=== PATIENT | female | born 1965 | race Caucasian/White ===

== ENCOUNTER 2017-08-30 08:06 | Day surgery (SDC) | payer OTHER ==
[2017-08-28 07:52] VITALS: BMI 21.9
--- NOTE | 2017-08-29 15:03 | HP ---
HISTORY AND PHYSICAL DATE OF SERVICE: 08/30/2017 Julia Covarrubias is a 52-year-old patient seen with progressive right shoulder pain. We discussed treatment options. She elected to proceed with right shoulder arthroscopy. Consent was obtained. PAST MEDICAL HISTORY: Noncontributory. PAST SURGICAL HISTORY: Noncontributory. DAILY MEDICATIONS: Ibuprofen or Tylenol as needed. ALLERGIES: EPINEPHRINE. SOCIAL HISTORY: Patient denies current tobacco use. PHYSICAL EXAMINATION: Right shoulder: Flexion is 170 degrees, abduction is 170 degrees, external rotation is 70 degrees. Weakness, tenderness along the anterior lateral acromion rotator cuff insertion site. Impingement is positive at 110. Drop-arm signs equivocal. Distal neurovascular exam intact. Radiographs of the right shoulder reveal a lateral downsloping anterior acromion. An MRI of right shoulder revealed rotator cuff tear and chondromalacia. IMPRESSION: Right shoulder impingement with rotator cuff tear. PLAN: Right shoulder arthroscopy with subacromial decompression, probable arthroscopic rotator cuff repair and debridement. MMODL / IJN: [id number] /
[~2017-08-30 08:06] MED LIST: DEXAMETHASONE SOD PHOSPHATE 10 MG/ML 1 ML VIAL IV ONE; HYDROmorphone 0.5 MG/0.5 ML SYRINGE IVP PRN; LACTATED RINGERS 1,000 ML IV SCH; MIDAZOLAM 2 MG/2 ML VIAL IV PRN
[2017-08-30] MEDS ORDERED: SCOPOLAMINE 1.5MG/72HR PATCH TRANSDERM ONE (08:57)
[2017-08-30] MEDS: ONDANSETRON 4 MG/2 ML VIAL IVP ONE ×2 (08:57→12:18)
[2017-08-30] MEDS ORDERED: fentaNYL (PF) 50 MCG/ML 2 ML AMP IVP ONE (09:00)
[2017-08-30] MEDS ORDERED: MIDAZOLAM 2 MG/2 ML VIAL IVP ONE (09:00)
--- NOTE | 2017-08-30 09:27 | P.ONQ ---
Anesthesiology Proc Note - PNB - Peripheral Nerve Block Performed Right Interscalene Single Time Out Performed: Yes Procedure Start Time: 08:55 Indication: Acute Post-Operative Pain, Analgesia Sedation Type: Sedate with meaningful contact maintained Preparation: Sterile Prep Position: Supine Catheter: None Needle Types: Other (see comment) (Sienna) Needle Size: 50mm (2") Needle Gauge: 21 Technique: Ultrasound Injectate: Other (see comment) (12.5 mL 0.5% ropivacaine +12.5 mL 2% lidocaine) Adjunct: Epinephrine (see comment for dilution ratio) (1:200,000) Blood Aspirated: No Pain Paresthesia on Injection Noted: No Resistance on Injection: Normal Events: Uneventful and Well Tolerated
[2017-08-30] MEDS ORDERED: LIDOCAINE 2%-EPI 1:100,000 20 ML VIAL ONE (09:54)
[2017-08-30] MEDS ORDERED: MIDAZOLAM 2 MG/2 ML VIAL ONE (09:54)
[2017-08-30] MEDS ORDERED: PROPOFOL 10 MG/ML 20 ML VIAL IV ONE (09:54)
[2017-08-30] MEDS ORDERED: LIDOCAINE 1% INJ 10MG/ML (20 ML MDV) ONE (09:54)
[2017-08-30] MEDS ORDERED: ROPIVACAINE 5 MG/ML 30 ML VIAL ONE (09:54)
[2017-08-30] MEDS ORDERED: fentaNYL (PF) 50 MCG/ML 2 ML AMP ONE (09:54)
[2017-08-30] MEDS ORDERED: SUCCINYLCHOLINE CHLORIDE 100 MG/5 ML SYR IV ONE (09:54)
[2017-08-30] MEDS: ceFAZolin 1,000 MG in DEXTROSE/WATER 1 50ML.BAG IV ONE ×2 (10:13→10:15)
[2017-08-30] MEDS ORDERED: LACTATED RINGERS 1,000 ML IV ONE (10:50)
[2017-08-30 12:05] VITALS: TEMP 97.2
--- NOTE | 2017-08-30 12:07 | P.OP ---
Date of Procedure: 08/30/17 Preoperative Diagnosis: Right shoulder impingement Postoperative Diagnosis: 1. Right shoulder rotator cuff tear 2. Right shoulder impingement 3. Right shoulder partial biceps tendon tear 4. Right shoulder superficial labral tear Procedure(s) Performed: 1. Right shoulder arthroscopic rotator cuff repair 2. Right shoulder arthroscopic subacromial decompression 3. Right shoulder arthroscopic biceps tenotomy 4. Right shoulder arthroscopic debridement labral tear Implants: 5-peek anchors Anesthesia: GETA, regional (Interscalene block) Surgeon: Bobby Ballesteros Hearing Officer #1: Jb Chauhan Estimated Blood Loss (ml): 10 Pathology: none sent Condition: stable Disposition: PACU Indications for Procedure: 52-year-old patient seen with progressive right shoulder pain. After having treatment options discussed, she elected to proceed with arthroscopy. Operative Findings: See description of procedure Description of Procedure: Patient underwent a shoulder block by department of anesthesia. The patient was then taken to the operative suite. The patient underwent a general anesthetic by the department of anesthesia. The patient was placed into a lateral position and secured. There was appropriate padding of the bony prominence. Right shoulder was then prepped and draped in normal sterile orthopedic fashion. We placed the extremity in 10 pounds of longitudinal traction. A posterior incision was now made for a posterior working portal site. The trocar and cannula were inserted into the glenohumeral joint. Arthroscopy was initiated. Spinal needle was now inserted anteriorly, to ascertain the anterior working portal site. An incision was now made in that area, a trocar was inserted followed by a probe. There was superficial tearing of the anterior labrum. Partial tearing and hyperemia long head biceps tendon. No chondromalacia. The inferior posterior labrum were intact. There was a large rotator cuff tear clearly visualized from glenohumeral side. I performed an arthroscopic biceps tenotomy. I debrided the labral tear down to stable tissue. The residual labrum was stable. Instruments were now removed from glenohumeral joint. Utilizing the posterior working portal site, the trocar and cannula were inserted into the subacromial space. Arthroscopy initiated. I made an incision 2 fingerbreadths lateral to the acromion. I introduced my trocar followed by my ArthroCare ablator. I now began ablating thick subacromial bursal tissue, which exposed the undersurface of the anterior acromion. This was diminished subacromial space. There was a very prominent anterior acromion. A motorized bur was introduced and a subacromial decompression was performed. I also excised some osteophytes off the inferior aspect of the distal clavicle. The acromioclavicular joint was visualized with only mild osteoarthritis. I turned my attention to the rotator cuff tear. There was a massive retracted rotator cuff tear measuring greater than 5 cm. The posterior portion was intrasubstance. Subscapularis anteriorly was intact. I cannot pull the tendon over the footprint. I began freeing up the tendon as much as possible aspect quite a bit of time doing this. I was finally barely able to get it over the footprint but I thought reasonable enough to attempt to repair. I performed a [id number] repair of the posterior portion of this tear utilizing 3 simple interrupted sutures. I then abraded the footprint getting down his petechial bone. I inserted 2 medial row anchors with assistance of an engineer design and construction portal site off the lateral acromion. There was medial anchors both had to sutures. I now passed all 8 limbs of suture through good bites of rotator cuff tendon. I augmented the central portion had difficulty time pulled over the footprint with 3 loop stitches. I now pulled the central portion of the footprint and secured it way laterally with one single anchor. I now crisscrossed the remaining 8 sutures and introduced 2 lateral anchors pulling the tendon down. We had a reasonable repair of his complex retracted tear. Suture limbs were clipped. The repair appeared fairly stable. Instruments now removed from the portal sites. All portal sites were approximated with nylon suture. Sterile dressings were applied followed by a shoulder immobilizer. Osvaldo POTTS assisted with the procedure. The patient was awakened, transferred to a bed, and taken to recovery in stable condition.
[2017-08-30] MEDS ORDERED: PROMETHAZINE INJ 25 MG/ML 1 ML VIAL IVPB ONE (12:29)
[2017-08-30 13:57] VITALS: RESP 16
[2017-08-30 14:22] VITALS: BP 95/54; PULSE 84
== END 2017-08-30 15:21 | disposition home or self-care (01) ==
LOC: OR 08:06
PROVIDERS: ATTEND Orthopaedic Surgery
DX: M75.101 Unspecified rotator cuff tear or rupture of right shoulder, not specified as traumatic (principal); M25.811 Other specified joint disorders, right shoulder; S46.111A Strain of muscle, fascia and tendon of long head of biceps, right arm, initial encounter; S43.401A Unspecified sprain of right shoulder joint, initial encounter; X58.XXXA Exposure to other specified factors, initial encounter; M25.711 Osteophyte, right shoulder; Z88.8 Allergy status to other drugs, medicaments and biological substances
CPT/HCPCS: 29826; 29827; 64415; 81025; C1894; C1713 ×2; J2250; J1100; J2550; J2405; J2001; J3010; J0690; J2795; J0330; J2704

== ENCOUNTER → 2021-05-31 | Outpatient (CLI) | payer OTHER ==
--- NOTE | 2021-05-31 12:03 | MR ---
EXAMINATION TYPE: MR shoulder LT wo con DATE OF EXAM: 05/31/2021 COMPARISON: None, no radiographic correlation available. HISTORY: 56 year-old female M25.512, left shoulder pain x 2 yrs, no trauma. TECHNIQUE: Multiplanar, multisequence imaging of the left shoulder is performed without contrast. FINDINGS: The long head biceps tendon appears intact and appropriately situated along the bicipital groove. The subscapularis tendon is intact. AC joint is intact. Mild joint space narrowing. Trace fluid within the subacromial/subdeltoid bursa. There is moderate heterogeneity of the supraspinatus tendon. An intrasubstance tear at the footprint of the anterior surface and it is distended and measures 3 mm long and 6 mm AP. There is additional b ursal sided fraying of the supraspinatus tendon. Infraspinatus tendon is intact. No atrophy of the rotator cuff musculature. The glenohumeral joint is intact. There is blunted appearance of the posterior superior labrum, coron al images 15 and 16 and axial image 19. No paralabral cyst. No glenohumeral joint effusion. No Hill-Sachs deformity or os acromiale. No suspicious bone marrow replacement. IMPRESSION: 1. Supraspinatus tendinosis along with bursal sided fraying. An intrasubstance tear of the anterior f ibers at the footprint measures 3 x 6 mm. No high-grade partial or full-thickness tear identified. No muscle atrophy. 2. Mild effusion within the subacromial/subdeltoid bursa likely reactive. 3. Somewhat blunted appearance to the posterior superior labrum. This could represent degenerative bl unting or a subtle labral tear. No paralabral cyst. Correlate with physical exam findings. 4. Mild degenerative change at the AC joint.
== END | disposition home or self-care (01) ==
LOC: RADMRIMAIN 10:52
PROVIDERS: ATTEND Orthopaedic Surgery
DX: M19.012 Primary osteoarthritis, left shoulder (principal); M67.814 Other specified disorders of tendon, left shoulder

== ENCOUNTER → 2021-07-11 | Outpatient (CLI) | payer OTHER ==
--- NOTE | 2021-07-12 09:33 | MM ---
Reason for exam: screening (asymptomatic). Last mammogram was performed 3 years and 11 months ago. History: Patient is postmenopausal. Family history of breast cancer in maternal grandmother at age 60. Took hormonal contraceptives for 5 years. Physical Findings: A clinical breast exam by your physician is recommended on an annual basis and results should be correlated with mammographic findings. MG 3D Screening Mammo W/Cad Bilateral CC and MLO view(s) were taken. Prior study comparison: August 16, 2017, bilateral MG screening mammo w CAD. September 02, 2015, bilateral MG 3d screening mammo w/cad. The breast tissue is heterogeneously dense. This may lower the sensitivity of mammography. There is no discrete abnormality. No significant changes when compared with prior studies. ASSESSMENT: Negative, BI-RAD 1 RECOMMENDATION: Routine screening mammogram of both breasts in 1 year.
== END | disposition home or self-care (01) ==
LOC: RADMAMWWP 09:14
PROVIDERS: ATTEND Obstetrics & Gynecology
DX: Z12.31 Encounter for screening mammogram for malignant neoplasm of breast (principal); Z78.0 Asymptomatic menopausal state; Z80.3 Family history of malignant neoplasm of breast
CPT/HCPCS: 77063; 77067

== ENCOUNTER → 2021-07-21 | Outpatient (CLI) | payer OTHER ==
[2021-07-21 10:58] LABS: HCT 41.6 % (34.0-46.0); HGB 13.5 gm/dL (11.4-16.0); MCH 28.7 pg (25.0-35.0); MCHC 32.6 g/dL (31.0-37.0); MCV 88.2 fL (80.0-100.0); Mean Platelet Volume 6.9; Platelet Count 244 k/uL (150-450); RBC 4.71 m/uL (3.80-5.40); RDW 12.5 % (11.5-15.5); WBC 5.4 k/uL (3.8-10.6)
[2021-07-21 11:07] LABS: ALT 11 U/L (4-34); AST 23 U/L (14-36); African American GFR (CKD) >90 (>60 ml/min/1.73 sqM); Albumin 4.1 g/dL (3.5-5.0); Alkaline Phosphatase 71 U/L (38-126); Anion Gap 8 mmol/L; Blood Urea Nitrogen 14 mg/dL (7-17); Calcium 9.6 mg/dL (8.4-10.2); Carbon Dioxide 28 mmol/L (22-30); Chloride 105 mmol/L (98-107); Glucose 95 mg/dL (74-99); Non-African American GFR(CKD) >90 (>60 ml/min/1.73 sqM); Potassium 4.6 mmol/L (3.5-5.1); Sodium 141 mmol/L (137-145); Total Bilirubin 0.5 mg/dL (0.2-1.3); Total Protein 7.4 g/dL (6.3-8.2)
[2021-07-21 11:25] LABS: T4, Free (Free Thyroxine) 0.92 ng/dL (0.78-2.19)
--- NOTE | 2021-07-21 15:25 | BD ---
EXAMINATION TYPE: Axial Bone Density DATE OF EXAM: 07/21/2021 COMPARISON: 2017 CLINICAL HISTORY: Postmenopausal screening Height: 67 Weight: 142.9 FRAX RISK QUESTIONS: Alcohol (3 or more units per day): no Family History (Parent hip fracture): no Glucocorticoids (More than 3mos): no (Ex: prednisone, prednisolone, methylprednisolone, dexamethasone, and hydrocortisone). History of Fracture in Adulthood: no Secondary Osteoporosis: no 1. Type 1 Diabetes: no 2. Hyperthyroidism: no 3. Menopause before 45: no 4. Malnutrition: no 5. Chronic liver disease: no Rheumatoid Arthritis: no Current Tobacco Use: yes RISK FACTORS HISTORY OF: Surgery to Spine/Hip(right/left)/Wrist (right/left): no Family History of Osteoporosis: yes Active: yes Diet low in dairy products/other sources of calcium: yes Postmenopausal woman: yes Lost more than 2 inches in height since high school: no MEDICATIONS: none Additional History: EXAM MEASUREMENTS: Bone mineral densitometry was performed using the [employer]. Bone mineral density as measured about the Lumbar spine is: ----- L1-L4(G/cm2): 0.923 T Score Values are as follows: ----- L2: -2.3 ----- L3: -2.1 ----- L4: -2.3 ----- L1-L4: -2.1 Bone mineral density has: decreased -10.5 % since study of: 08.16.2017 Bone mineral density about the R hip (g/cm2): 0.734 Bone mineral density about the L hip (g/cm2): 0.719 T Score values are as follows: -----R Neck: -2.2 -----L Neck: -2.3 -----R Total: -2.4 -----L Total: -2.2 Bone mineral density has: decreased-8.4 % since study of: 08.16.2017 IMPRESSION: Osteopenia (T Score between -2.5 and -1). There is slightly increased risk of fracture and the patient may be considered for treatment. Re-Screen 2-5 years. NOTE: T-SCORE=SD OF THE YOUNG ADULT MEAN.
[2021-07-22 04:27] LABS: Chol/HDL Ratio 3.14 Ratio; LDL Cholesterol,Calculated 122.5 mg/dL (0.0-131.0)
== END | disposition home or self-care (01) ==
LOC: RADBDWWP 09:40
PROVIDERS: ATTEND Obstetrics & Gynecology
DX: Z13.820 Encounter for screening for osteoporosis (principal); Z13.220 Encounter for screening for lipoid disorders; M85.89 Other specified disorders of bone density and structure, multiple sites
CPT/HCPCS: 77080; 80053; 80061; 83036; 84439; 84443; 84479; 85027

== ENCOUNTER → 2021-10-17 | Outpatient (CLI) | payer OTHER ==
[2021-10-17 12:13] LABS: Basophils # (A) 0.1 k/uL (0-0.2); Basophils % (A) 1 %; Eosinophils # (A) 0.1 k/uL (0-0.7); Eosinophils % (A) 2 %; HCT 45.8 % (34.0-46.0); HGB 14.4 gm/dL (11.4-16.0); Lymphocytes # (A) 1.4 k/uL (1.0-4.8); Lymphocytes % (A) 25 %; MCH 27.9 pg (25.0-35.0); MCHC 31.4 g/dL (31.0-37.0); MCV 88.9 fL (80.0-100.0); Mean Platelet Volume 7.1; Monocytes # (A) 0.3 k/uL (0-1.0); Monocytes % (A) 6 %; Neutrophils # (A) 3.7 k/uL (1.3-7.7); Neutrophils % (A) 64 %; Platelet Count 263 k/uL (150-450); RBC 5.16 m/uL (3.80-5.40); RDW 12.9 % (11.5-15.5); WBC 5.8 k/uL (3.8-10.6)
[2021-10-17 12:36] LABS: Potassium 4.7 mmol/L (3.5-5.1)
== END | disposition home or self-care (01) ==
LOC: LABPAT 10:27
PROVIDERS: ATTEND Orthopaedic Surgery
DX: Z01.818 Encounter for other preprocedural examination (principal); M75.42 Impingement syndrome of left shoulder
CPT/HCPCS: 36415; 80051; 85025; 93005

== ENCOUNTER 2021-10-26 05:52 | Day surgery (SDC) | payer OTHER ==
[2021-10-20 09:23] VITALS: BMI 22.2
--- NOTE | 2021-10-25 18:14 | HP ---
HISTORY AND PHYSICAL DATE OF SURGERY: 10/26/2021 Julia Lay is a 56-year-old patient seen with progressive left shoulder pain. We discussed options for treatment. She elected to proceed with left shoulder arthroscopy. Consent was obtained. PAST MEDICAL HISTORY: Noncontributory. PAST SURGICAL HISTORY: Right shoulder arthroscopy, right wrist surgery. DAILY MEDICATIONS: Tylenol, Advil. ALLERGIES: EPINEPHRINE. SOCIAL HISTORY: She smokes cigarettes. PHYSICAL EVALUATION OF THE LEFT SHOULDER: Flexion is 140 degrees, abduction is 130 degrees. External rotation is 40 degrees with weakness and pain. Tenderness along the anterolateral acromion and rotator cuff insertion site. Impingement is positive at 100 degrees. Cross-body adduction sign is positive. Drop-arm sign is positive. Distal neurovascular exam is intact. Left shoulder radiographs revealed a type 2 acromion as well as evidence for acromioclavicular joint osteoarthritis. Left shoulder MRI revealed a partial rotator cuff tear with evidence for acromioclavicular joint osteoarthritis and possible labral tear. IMPRESSION: 1. Left shoulder impingement with partial rotator cuff tear. 2. Left shoulder acromioclavicular joint osteoarthritis. PLAN: Left shoulder arthroscopy with subacromial decompression, arthroscopic Alta procedure, possible arthroscopic rotator cuff repair and debridement. MMODL / IJN: [id number] /
[2021-10-26] MEDS ORDERED: ONDANSETRON 4 MG/2 ML VIAL IVP ONE ×2 (05:57→09:35)
[2021-10-26] MEDS ORDERED: LACTATED RINGERS 1,000 ML IV SCH (05:57)
[2021-10-26] MEDS ORDERED: DEXAMETHASONE SOD PHOSPHATE 4 MG/ML 1 ML VIAL IV ONE (05:57)
[2021-10-26] MEDS ORDERED: SCOPOLAMINE 1.5MG/72HR PATCH TRANSDERM ONE (06:30)
[2021-10-26 06:35] VITALS: RESP 16; TEMP 98.8
[2021-10-26] MEDS ORDERED: LIDOCAINE 1% (10MG/ML) FOR IV START INTRADERMA ONE (06:44)
[2021-10-26] MEDS ORDERED: MIDAZOLAM 2 MG/2 ML VIAL IVP ONE (06:58)
[2021-10-26] MEDS ORDERED: HYDROmorphone 0.5 MG/0.5 ML SYRINGE IVP PRN (07:00)
[2021-10-26] MEDS ORDERED: SUCCINYLCHOLINE CHLORIDE 100 MG/5 ML SYR IV ONE (07:25)
[2021-10-26] MEDS ORDERED: LIDOCAINE 1% INJ 10MG/ML (20 ML MDV) ONE (07:25)
[2021-10-26] MEDS ORDERED: PROPOFOL 10 MG/ML 20 ML VIAL IV ONE (07:25)
[2021-10-26] MEDS ORDERED: fentaNYL (PF) 50 MCG/ML 2 ML AMP ONE (07:25)
--- NOTE | 2021-10-26 07:25 | P.ANPRN ---
Procedure Note - Anesthesia - Nerve Block Performed Left Interscalene Single Date of Procedure: 10/26/21 Procedure Start Time: 06:57 Procedure Stop Time: 07:10 Location of Patient: PreOp Indication: Acute Post-Operative Pain, Requested by Surgeon Sedation Type: Sedate with meaningful contact maintained Preparation: Sterile Prep, Sterile Dressing Position: Sitting Catheter: None Needle Types: Pajunk Needle Gauge: 21 Ultrasound used to visualize needle placement: Yes Ultrasound used to observe medication spread: Yes Injectate: 0.5% Ropivacaine (see comment for volume) (30 ml + decadron 4 mg) Blood Aspirated: No Pain Paresthesia on Injection Noted: No Resistance on Injection: Normal Image Stored and Saved: Yes Events: Uneventful and Well Tolerated
[2021-10-26] MEDS ORDERED: LACTATED RINGERS 1,000 ML IV ONE (08:02)
--- NOTE | 2021-10-26 08:57 | P.OP ---
Date of Procedure: 10/26/21 Preoperative Diagnosis: Left shoulder impingement Postoperative Diagnosis: 1. Left shoulder rotator cuff tear 2. Left shoulder impingement Procedure(s) Performed: 1. Left shoulder arthroscopic rotator cuff repair 2. Left shoulder arthroscopic subacromial decompression Implants: 15.5 Arthrex swivel lock anchor Anesthesia: GETA, regional (Interscalene block) Surgeon: Bobby Ballesteros Deputy County Counsel #1: Jb Chauhan Estimated Blood Loss (ml): 8 Pathology: none sent Condition: stable Disposition: PACU Indications for Procedure: 56-year-old patient seen with progressive left shoulder pain. After treatment options were discussed, she elected to proceed with arthroscopy. Operative Findings: see description of procedure Description of Procedure: Patient underwent an interscalene block by department of anesthesia. The patient was then taken to the operative suite. The patient underwent a general anesthetic by the department of anesthesia. The patient was placed into a lateral position and secured. There was appropriate padding of the bony prominence. Left shoulder was then prepped and draped in normal sterile orthopedic fashion. We placed the extremity in 10 pounds of longitudinal traction. A posterior incision was now made for a posterior working portal site. The trocar and cannula were inserted into the glenohumeral joint. Arthroscopy was initiated. Spinal needle was now inserted anteriorly, to ascertain the anterior working portal site. An incision was now made in that area, a trocar was inserted followed by a probe. The labrum was probed and was found to be stable. Long head biceps probed and found to be stable. There was no significant chondromalacia present at this point instruments removed from the glenohumeral joint. Utilizing the posterior working portal site, the trocar and cannula were inserted into the subacromial space. Arthroscopy initiated. I made an incision 2 fingerbreadths lateral to the acromion. I introduced my trocar followed by my ArthroCare ablator. I now began ablating thick subacromial bursal tissue, which exposed the undersurface of the anterior acromion. There was diminished subacromial space. There was a very prominent anterior acromion. A motorized bur was introduced and a subacromial decompression was performed. I also excised some osteophytes off the inferior aspect of the distal clavicle. Th e AC joint was visualized and noted to be moderately arthritic. I did not think enough to warrant a Alta procedure. I turned my attention to the rotator cuff tendon. There was an area of significant partial tearing along the distal supraspinatus. Upon probing it area there was a full-thickness perforation. I now debrided the margins getting down to stable tendon tissue. The defect measured approximately 1.5 cm but was freely mobile over the footprint. I abraded the footprint with a motorized bur. With the assistance of Osvaldo POTTS Past 3 everted mattress sutures through good bites of rotator cuff tendon. I now punched a hole in the footprint for insertion of an anchor. All 6 limbs of suture were passed through the eyelet of a 5.5 Arthrex swivel lock anchor. I placed the eyelet into pre-punched hole. I held that eyelet in position while Osvaldo POTTS tensioned the sutures and deployed the anchor. There was good fixation of the anchor. All residual suture limbs were now clipped. We had good compression of the tendon along the entire footprint. Instruments now removed from the portal sites. All portal sites were approximated with nylon suture. Sterile dressings were applied followed by a shoulder immobilizer. Jb POTTS assisted in this case. The patient was awakened, transferred to a bed, and taken to recovery in stable condition.
[2021-10-26] MEDS ORDERED: PROMETHAZINE INJ 25 MG/ML 1 ML VIAL IVPB ONE (09:35)
[2021-10-26 11:23] VITALS: BP 116/56; PULSE 81
== END 2021-10-26 11:58 | disposition home or self-care (01) ==
LOC: OR 05:52
PROVIDERS: ATTEND Orthopaedic Surgery
DX: M25.812 Other specified joint disorders, left shoulder (principal); M75.102 Unspecified rotator cuff tear or rupture of left shoulder, not specified as traumatic; M25.712 Osteophyte, left shoulder; Z98.890 Other specified postprocedural states; F17.210 Nicotine dependence, cigarettes, uncomplicated; Z79.1 Long term (current) use of non-steroidal anti-inflammatories (NSAID); Z79.83 Long term (current) use of bisphosphonates; Z79.899 Other long term (current) drug therapy; Z88.8 Allergy status to other drugs, medicaments and biological substances
CPT/HCPCS: 64415; 76942; 29826; 29827; 29824; C1713; C1894; J2250; J1100; J2550; J2405; J0690; J2001; J3010; J0330; J2704

== ENCOUNTER → 2022-02-06 | Outpatient (CLI) | payer OTHER ==
--- NOTE | 2022-02-06 22:32 | MR ---
EXAMINATION TYPE: MR knee LT wo con DATE OF EXAM: 02/06/2022 COMPARISON: None. HISTORY: L knee pain inner for one year. TECHNIQUE: Multiplanar, multisequence imaging of the left knee is performed without IV contrast. FINDINGS: MEDIAL MENISCUS: Anterior and posterior horns are intact without tear. LATERAL MENISCUS: Anterior and posterior horns are intact without tear. CRUCIATE LIGAMENTS: The anterior and posterior cruciate ligaments are intact and unremarkable. COLLATERAL LIGAMENTS: The medial collateral ligament and lateral collateral ligament complex are inta ct and unremarkable. EXTENSOR MECHANISM: Visualized quadriceps and patellar tendons are intact. EFFUSION: No significant suprapatellar joint effusion. POPLITEAL CYST: No popliteal/freeman cyst. TRICOMPARTMENT SPACES: Mild tricompartment joint space loss. No significant spurring. CARTILAGE: Some focal chondromalacia patella axial image 25 with fissuring and cartilaginous loss. BONE MARROW SIGNAL: Focus of diminished T1 and increased T2 signal along the central aspect of the po sterior patellar pole sagittal image 17 for reference. OTHER: No additional significant abnormality is appreciated. IMPRESSION: No meniscal or ligamentous tear is seen. Degenerative changes greatest patellofemoral com partment as detailed above.
== END | disposition home or self-care (01) ==
LOC: RADMRIMAIN 13:15
PROVIDERS: ATTEND Orthopaedic Surgery
DX: M17.12 Unilateral primary osteoarthritis, left knee (principal)

== ENCOUNTER → 2022-07-26 | Outpatient (CLI) | payer OTHER ==
[2022-07-26 10:42] LABS: HCT 41.5 % (37.2-46.3); HGB 13.3 g/dL (12.0-15.0); MCV 87.4 fL (80.0-97.0); Mean Platelet Volume 9.4 fL (9.5-12.2); NRBC Per 100 WBC 0 /100 WBCS (0.0-0.0); Platelet Count 240 X 10*3/uL (140-440); RBC 4.75 X 10*6/uL (4.10-5.20); RDW 13.4 % (11.5-14.5); WBC 4.82 X 10*3/uL (4.50-10.00)
[2022-07-26 12:10] LABS: Chol/HDL Ratio 3.04 Ratio; LDL Cholesterol,Calculated 138.6 mg/dL (0.0-131.0); VLDL Calculation 10.36 mg/dL (5.00-40.00)
--- NOTE | 2022-07-27 19:51 | MM ---
Reason for Exam: Screening (asymptomatic). Last mammogram was performed 1 year(s) and 1 month(s) ago. Patient History: Menarche at age 11. First Full-Term at age 27. Postmenopausal. Patient used Hormonal Contraceptives for 5 years. Maternal grandmother had breast cancer, age 60. Risk Values: Marivel 5 year model risk: 1.6%. NCI Lifetime model risk: 9.5%. Prior Study Comparison: 09/02/2015 Bilateral Screening Mammogram, [facility]. 08/16/2017 Bilateral Screening Mammogram, [facility]. 07/11/2021 Bilateral Screening Mammogram, [facility]. Tissue Density: The breast tissue is heterogeneously dense. This may lower the sensitivity of mammography. Findings: Analyzed By CAD. There is no suspicious group of microcalcifications or new suspicious mass in either breast. Overall Assessment: Negative, BI-RAD 1 Management: Screening Mammogram of both breasts in 1 year. 1. Patient should continue monthly self breast exams. 2. A clinical breast exam by your physician is recommended on an annual basis. 3. This exam should not preclude additional follow-up of suspicious palpable abnormalities. Electronically signed and approved by: Vilma Carlos M.D. Radiologist
== END | disposition home or self-care (01) ==
LOC: RADMAMWWP 07:49
PROVIDERS: ATTEND Obstetrics & Gynecology
DX: Z12.31 Encounter for screening mammogram for malignant neoplasm of breast (principal); Z13.220 Encounter for screening for lipoid disorders; Z13.29 Encounter for screening for other suspected endocrine disorder; R53.83 Other fatigue; Z80.3 Family history of malignant neoplasm of breast; Z78.0 Asymptomatic menopausal state
CPT/HCPCS: 77063; 77067; 80061; 84439; 84443; 84479; 85027

== ENCOUNTER → 2023-08-13 | Outpatient (CLI) | payer OTHER ==
--- NOTE | 2023-08-14 13:37 | BD ---
EXAMINATION TYPE: Axial Bone Density DATE OF EXAM: 08/13/2023 CLINICAL HISTORY: 58 years old Female. ICD-10 CODE: M85.88 Height: 65 Weight: 143.4 FRAX RISK QUESTIONS: Alcohol (3 or more units per day): no Family History (Parent hip fracture): no Glucocorticoids (More than 3mos): no History of Fracture in Adulthood: no Secondary Osteoporosis: 1. Type 1 Diabetes: no 2. Hyperthyroidism: no 3. Menopause before 45: no 4. Malnutrition: no 5. Chronic liver disease: no Rheumatoid Arthritis: no Current Tobacco Use: yes RISK FACTORS HISTORY OF: Hip Fracture (Right/Left): no Spine Fracture: no History of Wrist Fracture: no Surgery to Spine/Hip(right/left)/Wrist (right/left): no Family History of Osteoporosis: Mother, Maternal Grandmother, Paternal Grandmother Active: yes Diet low in dairy products/other sources of calcium: yes Postmenopausal woman: yes Take estrogen and/or progesterone medications: no Lost more than 2 inches in height since high school: yes Frequent falls: no Poor Health: no Hyperparathyroidism: no Adrenal Insufficiency: no MEDICATIONS: Prednisone or other steroids: no Thyroid Medications: no Osteoporosis Medications: Fosamax once weekly How Long: Past 2 years Additional Medications: Additional History: EXAM MEASUREMENTS: Bone mineral densitometry was performed using the [employer] System. Bone mineral density as measured about the Lumbar spine is: ----- L1-L4(G/cm2): 0.960 T Score Values are as follows: ----- L1: -1.8 ----- L2: -2.0 ----- L3: -1.6 ----- L4: -2.0 ----- L1-L4: -1.8 Z Score Values are as follows: ----- L1: -0.8 ----- L2: -1.0 ----- L3: -0.6 ----- L4: -0.9 ----- L1-L4: -0.8 Bone mineral density has: increased 4.0 % since study of: 07/21/2021 Bone mineral density about the R hip (g/cm2): 0.745 Bone mineral density about the L hip (g/cm2): 0.775 T Score values are as follows: -----R Neck: -2.3 -----L Neck: -2.1 -----R Total: -2.1 -----L Total: -1.8 Z Score values are as follows: -----R Neck: -1.1 -----L Neck: -1.0 -----R Total: -1.3 -----L Total: -1.0 Bone mineral density has: increased 6.1 % since study of: 07/21/2021 FRAX%s: The graph provided illustrates a 10.4% chance for a major osteoporotic fx and a 2.7% chance f or the hips probability for fx in 10 years time. IMPRESSION: Osteopenia (T Score between -2.5 and -1). There is slightly increased risk of fracture and the patient may be considered for treatment. Re-Screen 2-5 years. NOTE: T-SCORE=SD OF THE YOUNG ADULT MEAN.
--- NOTE | 2023-08-14 18:54 | MM ---
Reason for Exam: Screening (asymptomatic). Last screening mammogram was performed 12 month(s) ago. Patient History: Menarche at age 11. First Full-Term at age 27. Postmenopausal. Patient used Hormonal Contraceptives for 5 years. Maternal grandmother had breast cancer, age 60. Risk Values: Marivel 5 year model risk: 1.6%. NCI Lifetime model risk: 9.3%. Prior Study Comparison: 08/16/2017 Bilateral Screening Mammogram, [facility]. 07/11/2021 Bilateral Screening Mammogram, [facility]. 07/26/2022 Bilateral MG 3D screening mammo w/cad, [facility]. Tissue Density: The breast tissue is heterogeneously dense. This may lower the sensitivity of mammography. Findings: Analyzed By CAD. There is no suspicious group of microcalcifications or new suspicious mass in either breast. Overall Assessment: Negative, BI-RAD 1 Management: Screening Mammogram of both breasts in 1 year. . Patient should continue monthly self-breast exams. A clinical breast exam by your physician is recommended on an annual basis. This exam should not preclude additional follow-up of suspicious palpable abnormalities. Note on Marivel scores and lifetime risk: 1. A Marivel score greater than 3% is considered moderate risk. If this is the case, consider specialist referral to assess eligibility for a risk reducing agent. 2. If overall lifetime risk for the development of breast cancer is 20% or higher, the patient may qualify for future screening with alternating mammogram and breast MRI. Electronically signed and approved by: Vilma Carlos M.D. Radiologist
== END | disposition home or self-care (01) ==
LOC: RADBDWWP 15:41
PROVIDERS: ATTEND Obstetrics & Gynecology
DX: Z12.31 Encounter for screening mammogram for malignant neoplasm of breast (principal); M85.89 Other specified disorders of bone density and structure, multiple sites; Z78.0 Asymptomatic menopausal state; Z80.3 Family history of malignant neoplasm of breast
CPT/HCPCS: 77063; 77067; 77080

== ENCOUNTER → 2023-12-26 | Outpatient (CLI) | payer OTHER ==
--- NOTE | 2023-12-26 12:31 | CTL ---
EXAMINATION TYPE: CT Low Dose Lung DATE OF EXAM ORDERED: 12/26/2023 HISTORY: Current smoker.. Lung cancer screening CT DLP: 64.[address] CTDI: 1.6 mGy Automated exposure control for dose reduction was used. SCREENING VISIT: Baseline. COMPARISON: None available. TECHNIQUE: Low dose computed tomography scan was performed through the chest at 1 mm thick sections a nd reconstructed images in multiple planes at 1 mm and [address] DIAGNOSTIC QUALITY: Satisfactory FINDINGS: Mediastinum and Maria Guadalupe: There is no axillary, mediastinal or hilar lymphadenopathy. Pleural and Pericardial spaces: There are no pleural or pericardial effusions. Upper Abdomen: The visualized upper abdomen is unremarkable. Cardiovascular: The thoracic aorta is normal in size. Lung Parenchyma and Airways: 5.5 mm pleural-based nodule in right lower lobe on series series 4 image 240. Small calcification along the surface of the diaphragm in the left lower lobe. 3.2 mm nodule wi thin the right upper lobe on series 4 image 168. 2 mm nodule in the right middle lobe on series 4 flavio ge 183. 4.1 mm nodule in the right lower lobe on series 4 image 182. There are several additional pul monary nodules seen throughout the right lung measuring less than 5 mm in diameter. There are a few s cattered nodules seen within the left lower lobe with the largest measuring 5.7 mm on series 4 image 225. Mild centrilobular emphysema is noted. Bones: No fracture or aggressive osseous lesion. IMPRESSION: 1. Scattered pulmonary nodules described above. 2. Mild emphysema. CT LUNG RAD AND CT CHEST RECOMMENDATION: Lung-Rad 2 Benign Appearance or Behavior: Continue annual sc reening with LDCT in 12 months.
--- NOTE | 2023-12-27 09:16 | US ---
EXAMINATION TYPE: US carotid duplex BILAT DATE OF EXAM: 12/26/2023 COMPARISON: NONE CLINICAL INDICATION: Female, 58 years old with history of I65.23 OCCLUSION AND STENOSIS OF BILATERAL CAROTID ARTERIES; No HTN. Screening per patient. TECHNIQUE: Carotid duplex ultrasound examination. Indirect Doppler criteria was utilized. FINDINGS: EXAM MEASUREMENTS: RIGHT: Peak Systolic Velocity (PSV) cm/sec ----- Right CCA: 93.0 ----- Right ICA: 88.6 ----- Right ECA: 86.4 ICA/CCA ratio: 1.0 RIGHT: End Diastole cm/sec ----- Right CCA: 30.3 ----- Right ICA: 40.2 ----- Right ECA: 18.2 LEFT: Peak Systolic Velocity (PSV) cm/sec ----- Left CCA: 103.9 ----- Left ICA: 82.0 ----- Left ECA: 79.0 ICA/CCA ratio: 0.8 LEFT: End Diastole cm/sec ----- Left CCA: 35.2 ----- Left ICA: 27.0 ----- Left ECA: 17.5 VERTEBRALS (direction of flow): Right Vertebral: Antegrade Left Vertebral: Antegrade Rhythm: Normal VICE PRESIDENT FINANCIAL NOTES: No elevated velocities. Right anterior bulb mild plaque/wall thickening. IMPRESSION: No hemodynamically significant internal carotid artery stenosis on either side. Criteria for Assigning % of Stenosis / Diameter reduction (Estimation based on the indirect measurements of the internal carotid artery velocities (ICA PSV). 1. Normal (no stenosis)=ICA PSV < 125 cm/s: ratio < 2.0: ICA EDV<40 cm/s. 2. Less than 50% stenosis=ICA PSV < 125 cm/s: ratio < 2.0: ICA EDV<40 cm/s. 3. 50 to 69% stenosis=ICA PSV of 125 to 230 cm/s: ration 2.0 ? 4.0: ICA EDV 40-100 cm/s. 4. Greater than 70% stenosis to near occlusion= ICA PSV > 230 cm/s: ratio > 4.0: ICA EDV > 100 cm/s. 5. Near occlusion= ICA PSV velocities may be low or undetectable: variable ratio and ICA EDV. 6. Total occlusion=unable to detect flow.
== END | disposition home or self-care (01) ==
LOC: RADCTMAIN 10:04
PROVIDERS: ATTEND Internal Medicine
DX: Z12.2 Encounter for screening for malignant neoplasm of respiratory organs (principal); I65.23 Occlusion and stenosis of bilateral carotid arteries; J43.2 Centrilobular emphysema; R91.8 Other nonspecific abnormal finding of lung field; F17.210 Nicotine dependence, cigarettes, uncomplicated
CPT/HCPCS: 71271; 93880